=== PATIENT | female | born 1970 | race Caucasian/White ===

== ENCOUNTER → 2021-04-21 | Day surgery (SDC) | payer OTHER ==
[~2021-04-21] VITALS: Ht 160 cm; Wt 94.9 kg
[~2021-04-21] MED LIST: ASPIRIN EC81 MG PO; CYCLOBENZAPRINE10 MG PO; DULOXETINE HCL60 MG PO; LASIX10 MG/ML PO; LEVOTHYROXINE112 MCG PO; LISINOPRIL20 MG PO; METFORMIN HCL1000 MG PO; MOTRIN600 MG PO; NORCO 5-325 TA1 EACH PO; OZEMPIC0.25 MG/0. IY; SIMVASTATIN40 MG PO; VITAMIN B-121000 MC1 PO; [UNRECOGNIZED DRUG - SUPPLY] IM/IV/SC
[2021-04-21 10:18] LABS: HCG (URINE) SCREEN NEGATIVE (NEGATIVE)
[2021-04-21 11:12] LABS: BUN/CREAT RATIO (CALC) 25.4 RATIO; CREATININE 0.63 mg/dL (0.51-0.95); POTASSIUM 3.8 mmol/L (3.5-5.1)
[2021-04-21 11:32] LABS: HCT 34.3 % (37.0-47.0); MCH 22.3 pg (25.0-31.0); MCHC 29.2 g/dL (32.0-36.0); MCV 76.4 fL (78.0-100.0); MPV 11.5 fL (6.0-9.5); RBC 4.49 M/uL (4.20-5.40); RDW 15.9 % (11.5-14.0); WBC 7.8 K/uL (4.0-10.5)
== END | disposition home or self-care (01) ==
LOC: FAS 09:48
PROVIDERS: Anesthesiology; Surgery
DX: T81.49XA Infection following a procedure, other surgical site, initial encounter (principal); E11.9 Type 2 diabetes mellitus without complications; E03.9 Hypothyroidism, unspecified; E78.00 Pure hypercholesterolemia, unspecified; E66.9 Obesity, unspecified; Z68.35 Body mass index [BMI] 35.0-35.9, adult; Z79.82 Long term (current) use of aspirin; Z88.1 Allergy status to other antibiotic agents; Z85.038 Personal history of other malignant neoplasm of large intestine; Z90.49 Acquired absence of other specified parts of digestive tract; Z98.51 Tubal ligation status; X58.XXXA Exposure to other specified factors, initial encounter; Y83.8 Other surgical procedures as the cause of abnormal reaction of the patient, or of later complication, without mention of misadventure at the time of the procedure; Y92.9 Unspecified place or not applicable
CPT/HCPCS: 36415; 80048; 84703; 87070; 87075; 87205; 93005; J0330; J0690; J2001; J2405; J2704; J2710; J3010; J7120